=== PATIENT | female | born 1945 | race Caucasian/White ===

== ENCOUNTER 2021-04-10 18:13 | Inpatient (IN) | payer OTHER ==
[~2021-04-10] VITALS: Ht 152.4 cm; Wt 89.4 kg
--- NOTE | ~2021-04-10 | HC ---
[facility] [place] [address] CONSULTATION Name: TRISTAN DURBIN Room #: 460-P ADM IN M.R.#: [id number] Admission: 04/10/21 Attend Phys: Devendra Shipman MD Discharge: Date of : 47 Report #: [id number] THIS REPORT FOR: cc: Carleen Felix Shanna R. DO Smithson, David G. MD ~ DATE OF SERVICE: 04/13/2021 HISTORY OF PRESENT ILLNESS: The patient is a 75-year-old female with a history of Parkinson's disease, admitted with generalized weakness, inability to ambulate. Noted to complain of stiffness, worse involving left upper and left lower extremity. Mental status changes have also been noted with hallucinations. She has been seen by Neurology and an MRI of the brain is pending. PAST MEDICAL HISTORY: Includes Parkinson's and irritable bowel syndrome. She [facility] which [facility] regarding bilateral leg pain. PAST SURGICAL HISTORY: Includes cholecystectomy and hysterectomy. FAMILY HISTORY: Noncontributory. SOCIAL HISTORY: Lives alone in an apartment, used a 4-wheeled walker. Daughter lives in the same city and the daughter takes her shopping. The patient has had issues with increased time to stand needing up to 20 minutes per notes. ALLERGIES: No known drug allergies. MEDICATIONS: See the MAR. REVIEW OF SYSTEMS: No complaints of chest pain, shortness of breath or abdominal discomfort. PHYSICAL EXAMINATION: GENERAL: A 75-year-old female in no obvious distress. VITAL SIGNS: Temperature 36.6, pulse 89, respirations 17, blood pressure 137/67. NEUROLOGIC: The patient is alert, follows basic 1-step commands. Facies are symmetric. EOMs are full. Language function and judgment seemed reasonably intact, although she was noted to have some hallucinations earlier per Dr. Gatica in Neurology. Functional range of motion of both upper and lower extremities. Strength appeared symmetrical. Position sense was intact in both sides. Reflexes were somewhat diminished in both sides. She is able to sit to stand, standby assistance. Bed mobility was mod assist. Once up, gait was 25 feet min assist with a front-wheeled walker. She is needing min assist with [facility] [address] [place] [address] CONSULTATION Name: TRISTAN DURBIN Room #: 460-[facility]#: [id number] Admission: 04/10/21 Attend Phys: Devendra Shipman MD Discharge: Date of : 47 Report #: [id number] toileting. ASSESSMENT: A 75-year-old female with the following problem list: 1. Parkinson's disease. 2. Left upper and left lower extremity weakness/stiffness with mental status changes. MRI of the brain is currently pending to rule out a cerebrovascular accident. 3. Bilateral lower extremity weakness. 4. Irritable bowel syndrome. 5. Anxiety, depression. 6. Hallucinations, which appear related to her Parkinson's. PLAN: Therapy evaluations are continuing. She is to have an MRI of the brain. Insurance will need to be checked regarding rehab therapy issues as she further medically stabilizes. We will be glad to follow along with you regarding her rehab therapy needs. By: [id number] Ricky Amaral MD /nt
[~2021-04-10 18:13] MED LIST: COLACE100 MG PO; IBUPROFEN 800800 MG PO; NOHOMEMEDICATIONS; NORCO 5-325 TA1 EACH PO; PROBIOTIC1 EAC1 PO
[2021-04-10 18:14] VITALS: BP 104/60
[2021-04-10 18:44] LABS: URINE BLOOD TRACE (Negative); URINE CLARITY CLEAR; URINE COLOR YELLOW; URINE GLUCOSE-RANDOM* TRACE (Negative); URINE KETONES 1+ (Negative); URINE LEUKOCYTES-REFLEX NEGATIVE (Negative); URINE NITRITE-REFLEX NEGATIVE (Negative); URINE PROTEIN (DIPSTICK) 1+ (Negative); URINE SPECIFIC GRAVITY >= 1.030 (1.005-1.035)
[2021-04-10 18:53] LABS: ICTOTEST (BILI CONFIRMATORY) Negative (Negative); URINE BILIRUBIN NEGATIVE (Negative)
[2021-04-10 18:58] LABS: FINE GRANULAR CASTS 0-3 Few /LPF (None Seen); HYALINE CASTS 0-3 Few /LPF (None Seen); MUCUS 4-6 Moderate strn/LPF (None Seen); SQUAMOUS None Seen /LPF (0-3); URIC ACID CRYSTALS 4-10 Moderate /LPF (None Seen)
[2021-04-10 18:58] LABS: ABSOLUTE NEUTROPHILS 6.4 thou/uL (1.4-8.2); BASOPHILS 0.5 % (0.0-2.0); EOSINOPHILS 1.3 % (0.0-3.0); HEMATOCRIT 39.5 % (37.0-47.0); LYMPHOCYTES 17.8 % (24.0-44.0); MCH 30.5 pg (26.0-34.0); MCHC 32.9 g/dL (28.0-37.0); MCV 92.6 fL (80.0-100.0); MONOCYTES 8.5 % (1.0-8.0); PLATELET COUNT 204 thou/uL (150-400); POLYS 71.9 % (36.0-66.0); RBC 4.26 mil/uL (4.20-5.00); RDW 13.9 % (10.5-14.5); WBC 8.9 thou/uL (4.0-11.0)
[2021-04-10 18:59] LABS: BACTERIA-REFLEX None Seen /HPF (None Seen); URINE RBC 1-2 Rare /HPF (NONE SEEN); URINE WBC-REFLEX None Seen /HPF (0-5)
[2021-04-10 19:00] LABS: CALCIUM 8.6 mg/dL (8.5-10.1); CREATININE 0.8 mg/dL (0.6-1.0); POTASSIUM 3.8 mmol/L (3.5-5.1)
[2021-04-10 19:07] LABS: ALBUMIN 3.4 g/dL (3.4-5.0); DIRECT BILIRUBIN 0.1 mg/dL (<0.1-0.2); TOTAL BILIRUBIN 0.6 mg/dL (0.2-1.0); TOTAL PROTEIN 6.2 g/dL (6.4-8.2)
[2021-04-10] MEDS ORDERED: TIZANIDINE HCL4 M2 PO (23:43)
[2021-04-10] MEDS ORDERED: CARBIDOPA-LEVO1 EAC9 PO (23:44)
[2021-04-10] MEDS ORDERED: CARBIDOPA-LEVO1 EAC7 PO (23:44)
[2021-04-10] MEDS ORDERED: VENLAFAXINE HCL75 M2 PO (23:44)
[2021-04-10] MEDS ORDERED: VITAMIN D31250 MC1 PO (23:44)
--- NOTE | 2021-04-10 23:46 | NUR ---
ROUTINE CONSULT CALLED TO DR. SUTTON ANSWERING SERVICE
[2021-04-11 07:00] VITALS: BP 126/62
--- NOTE | 2021-04-11 07:44 | NUR ---
PT ARRIVED IN THE UNIT AT 0022, WITH CO OF LEFT LEG STIFFNESS, ADMISSION COMPLETED REQUESTED TO SLEEP, VITAL SIGNS COMPLETED, REPORTSNO PAIN OR DISCOMFORT WILL CONTINUE TO MONITOR.
--- NOTE | 2021-04-11 18:10 | NUR ---
ASSUMED PT CARE AROUND 719. A X O X 3-4, ON RA, NON IMPULSIVE. 2 PERSON ASST FOR SAFETY, LEFT LEG WEAK. IV LF AC/SL.NEURO CONSULTED AND TELECONSULTING COMPLETED. MRI HEAD ORDERED, BUT WILL HAPPEN ONLY ON TUESDAY. HOSPITALIST AND NEURO DR INFORMED. PATIENT DAUGHTER WAS IN THE ROOM AND SITUATIONS UPDATED. WILL CALL FOR HELP, CALL LIGHT IN REACH. PAIN PARTIALLY CONTROLLED BY PRN PAIN MEDS. HOURLY ROUNDING DONE. WILL CONTINUE TO MONITOR.
[2021-04-11 20:31] VITALS: BP 114/74
--- NOTE | 2021-04-12 06:23 | NUR ---
PT SLEPT 50% OF THE NIGHT, WALKED AROUNG THE HALLWAY ACCOMPANIED BY STAFF, COMPLIANT TO TX, NO ADVERSE REACTION NOTED, REPORTS NO PAIN OR DISCMOFORT WILL CONTINUE TO MONITOR.
[2021-04-12 07:00] VITALS: BP 135/56
[2021-04-12 17:09] VITALS: BP 138/70
[2021-04-12 19:40] VITALS: BP 137/67
--- NOTE | 2021-04-13 04:26 | NUR ---
ASSUMED PT CARE THIS PM. PT IS ALERT AND ORIENTED WITH CONFUSION. PT DID NOT C/O PAIN. PT IS SBA WITH A WALKER TO THE BR. PT IS NON-COMPLIANT WITH THE USE OF CALL LIGHT. MEDS WERE GIVEN PER EMAR ORDERS. PT IS ON RA. PT SLEPT WELL ON THIS SHIFT. NO VISIBLE SIGN OF DISTRESS WAS NOTED. FALL PRECAUTION IN PLACE. WILL CONTINUE TO MONITOR.
--- NOTE | 2021-04-13 15:54 | NUR ---
Chart review. DX: AMS Unable to visit with junito r/t getting IV placed. Will cont following as needed for dc needs.
[2021-04-13 20:14] VITALS: BP 134/68
--- NOTE | 2021-04-14 02:03 | NUR ---
ASSUMED PT CARE THIS PM. PT IS ALERT AND ORIENTED X4 WITH NO SIGN OF CONFUSION OR DISORIENTATION. PT IS APPROPRIATE AND COOPERATIVE. PT IS NOW ANXIOUS OF TAKING PAIN MEDS WHICH MIGHT LEAD CONFUSION AND DISORIENTATION. PT CAN VERBALIZE NEEDS AND USES THE CALL LIGHT APPROPRAITELY. PT C/O PAIN AND CRAMPS IN L LEG. PT IS SBA TO THE BR/BSC WITH WALKER. MEDS WERE GIVEN PER RADHA KUMAR. PT IS ON RA. FALL PRECAUTIONS IN PLACE. WILL CONTINUE TO MONITOR.
[2021-04-14 08:00] VITALS: BP 127/67
--- NOTE | 2021-04-14 14:55 | NUR ---
PT ADMITTED RELATED TO ALTERED MENTAL STATUS. CM REVIEWED CHART AND SPOKE WITH CARE TEAM. CM MET WITH PT AND DTR AT BEDSIDE THIS DAY. PT APPEARED TO BE A&O X4. CM ROLE INTRODUCED. PT AND DTR INDICATED THAT SHE RESIDES IN AN APARTMENT ALONE WITH ELEVATOR ACCESS. PT INDICATED SHE HAS A 4WW AND A CAME FOR HOME USE. PT INDICATED NO HH OR OP HX. PT INDICATED THAT SHE WAS RECEPTIVE TO POST ACUTE CARE STAY. CM INDICATED THAT 5N HAD BEEN CONSULTED AND INDICATED THAT PT WASN'T MEDICALLY COMPLEX ENOUGH AND WAS TOO HIGH LEVEL FOR ACUTE REAHB ON 5N. PT AND DTR WERE DISSAPOINTED BUT EXPRESSED UNDERSTANDING. CM PROVIDED [employer] SNF LIST FOR REVIEW. PT AND DTR ARE REVIEWING LIST AND WILL INDICATED TO CM WHERE THEY WANT REFERRAL SENT. CM FOLLOWING REGARDING DC PLANNING.
--- NOTE | 2021-04-14 19:21 | NUR ---
Alert, pleasant, confused at times. claimed that she felt better today. vital signs monitored, lab reviewed.
[2021-04-14 20:53] VITALS: BP 123/62
--- NOTE | 2021-04-15 06:07 | NUR ---
ASSUMED CARE OF PT AT 1900. THROUGHOUT THE NIGHT PT RESTED IN ROOM WITH NO COMPLAINTS, VSS.THROUGHOUT THE NIGHT PT REMAINED ORIENTED AND AMBULATED TO THE BATHROOM OR COMMODE WITH A WALKER. DID NOT HAVE ANY HALLUCINATIONS OR HAVE ANY NEED FOR ANTI ANXIETY MEDICATION. MEDS TAKEN WHOLE EASILY. RESTING IN BED, WILL UPDATE DAY SHIFT RN.
[2021-04-15 07:56] VITALS: BP 125/70
--- NOTE | 2021-04-15 12:31 | NUR ---
Pt and dtr discussing dc home with hh this am, but after talking with the attending they are interested in SNF stay at [facility]. Referral called and faxed to admissions. She will need ins auth per [employer]. Awaiting response from [facility] on acceptance and ins auth submission.
[2021-04-15 15:55] VITALS: BP 122/75
[2021-04-15 19:48] VITALS: BP 128/77
--- NOTE | 2021-04-16 04:37 | NUR ---
Pt. rested quietly at intervals during the night when checked on during frequent rounds. She has attempted to get up out of bed without asking for assistance. Bed alarm has sounded off. Up to the bedside comode with one assistance. Po tyleno given (see emar) for c/o a headache with some relief noted.
[2021-04-16 08:15] VITALS: BP 131/73
[2021-04-16] MEDS ORDERED: CARBIDOPA-LEVO1 EAC8 PO (11:12)
--- NOTE | 2021-04-16 13:32 | NUR ---
Assumed pt care this am vs stable. Daughter at the bedside this am. Diet and medicatioms ar tolerated well. POC followed with no signs or verbalizations of distress noted. Report called to [facility]. IV removed pt is now dc.
--- NOTE | 2021-04-16 16:35 | NUR ---
AUTH WAS RECEIVED FOR PT TO DC TO [facility] THIS DAY. CHART COPY MADE. ORDERS FAXED. [facility]AN TRANSPORT ARRANGED FOR [id number]. PT AND DTR AWARE AND AGREEABLE. NO OTHER CM INTERVENTION INDICATED. CASE CLOSED.
[2021-04-17] MEDS ORDERED: HALDOL 0.5 MG0.5 MG PO (08:18)
== END 2021-04-16 13:51 | DRG 556 ==
LOC: ER 18:13 → EROBS 21:14 → 4W 21:14
PROVIDERS: Emergency Medicine; ADMIT Hospitalist; ATTEND Hospitalist
DX: M62.81 Muscle weakness (generalized) (principal); R44.3 Hallucinations, unspecified; E46 Unspecified protein-calorie malnutrition; K58.9 Irritable bowel syndrome, unspecified; M79.605 Pain in left leg; M79.604 Pain in right leg; G20 Parkinson's disease; E55.9 Vitamin D deficiency, unspecified; Z20.822 Contact with and (suspected) exposure to COVID-19; Z60.2 Problems related to living alone; F41.9 Anxiety disorder, unspecified; F32.9 Major depressive disorder, single episode, unspecified; M62.838 Other muscle spasm; R53.81 Other malaise; R39.11 Hesitancy of micturition; Z68.38 Body mass index [BMI] 38.0-38.9, adult; Z90.710 Acquired absence of both cervix and uterus; Z90.49 Acquired absence of other specified parts of digestive tract
CPT/HCPCS: 10047

== ENCOUNTER 2021-04-17 06:19 | Inpatient (IN) | payer OTHER ==
[~2021-04-17] VITALS: Ht 152.4 cm; Wt 95.3 kg
[2021-04-17] VITALS (63 sets, daily range): BP systolic 56–132; BP diastolic 16–80
--- NOTE | ~2021-04-17 | EMS ---
[address] [address] EMS Patient Care Report Name: TRISTAN DURBIN Room #: 203-P [facility] IN M.R.#: [id number] Admission: 04/17/21 Attend Phys: Maday Muro MD Discharge: Date of : 47 Report #: [id number] THIS REPORT FOR: //name// Report Transmitted: 04/20/2021 10:48 EMS Care Summary [place], [place]/[facility] Incident [id number] @ 04/17/2021 05:47 Incident Location [address] Patient TRISTAN DURBIN Female, 75 Years 1945 Patient Address [address] [facility] [address] [place] [address] Patient History Parkinson's Disease, Patient Allergies No known allergies, Patient Medications Other, Chief Complaint AMS Disposition Transported No Lights/[place] Dispatch Reason Cardiac Arrest/ Transported To [facility] Narrative EMS DISPATCHED TO NURSING FACILITY ON A REPORT OF A CARDIAC ARREST. UPON ARRIVAL ON SCENE EMS FIND PT LYING ON FLOOR OF NURSING FACILITY. PT NURSING STAFF REPORTED PT WAS BEING ASSISTED TO [facility] WHEN PT HAD A SYNCOPAL EPISODE. [address] [address] EMS Patient Care Report Name: TRISTAN DURBIN Room #: 203-P ADM IN M.R.#: [id number] Admission: 04/17/21 Attend Phys: Maday Muro MD Discharge: Date of : 49 Report #: [id number] STAFF REPORTED AFTER THE SYNCOPAL EPISODE, PT BELIEVED TO HAVE WENT PULSELESS, STAFF ON SCENE REPORTED THEY PROVIDED CHEST COMPRESSIONS FOR APPROXIMATELY 5 MINUTES UNTIL PT REGAINED PULSE. PT HAD STRONG BOUNDING PULSE UPON EMS INTIAL ASSESSMENT. PT IN ALTERED MENTAL STATE, PT KNOWN HX OF PARKINSON'S DISEASE BUT COULD USUALLY VERBALLY COMMUNICATE PER NURSING STAFF ON SCENE. PT VITAL SIGNS OBTAINED, AND PT PLACED ON SUPPLEMENTAL OXYGEN. PT MOVED INTO AMBULANCE WHERE PT VITAL SIGNS OBTAINED. PT PLACED ON CARIDAC MONITOR AND 12-LEAD ECG OBTAINED. IV ACCESS ESTABLISHED AND PT CONDITION CONTINUALLY MONITORED EN ROUTE TO [facility]. NO NOTICEABLE CHANGES IN PT CONDITON DURING TRANSPORT TO RECEIVING FACILITY. UPON ARRIVAL TO [facility] PT MOVED INTO FACILITY ON EMS STRETCHER WHERE PT WAS THEN TRANSFERRED ONTO ER HOSPITAL BED WITHOUT INCIDENT. PT REPORT GIVEN TO RECEIVING NURSING STAFF AND TRANSFER OF PT CARE COMPLETED. Initial Vitals @06:15P: 112,R: 18,BP: 132/86,Pain: 0/10,GCS: 8,Glucose: 96,SpO2: 96,Revised Trauma: 10, @06:27P: 96,R: 16,BP: 124/66,Pain: 0/10,GCS: 9,SpO2: 97,Revised Trauma: 11, Assessments @06:00MENTAL:Event Oriented,Place Oriented,Time Oriented,Person Oriented,SKIN:HEENT:Eyes: Right: Non-Reactive,Eyes: Left: Non-Reactive,LUNG SOUNDS:ABDOMEN:PELVIS//GI:EXTREMITIES:PULSE:NEURO:Other, Impression Altered Mental Status Procedures @06:00 ALS Assessment Response: UnchangedSucceeded @PTASucceeded @06:03 3-Lead ECG Response: UnchangedSucceeded @06:02 Oxygen FlowRate: 10 Device: Non Re-breather Mask (NRB) Response: UnchangedSucceeded @06:11 IV Therapy - Saline Lock 3cc (20 ga) Site: Antecubital-Left Response: UnchangedFailed Timeline MATERIALS ASSOCIATE,Succeeded, 05:46,Call Received 05:46,Dispatch Notified 05:47,Dispatched 05:48,En Route 05:54,On Scene 05:58,At Patient 06:00,ALS Assessment,Response: UnchangedSucceeded, [address] [address] EMS Patient Care Report Name: TRISTAN DURBIN Room #: 203-P [facility] IN [facility]#: [id number] Admission: 04/17/21 Attend Phys: Maday Muro MD Discharge: Date of : 49 Report #: [id number] 06:02,Oxygen FlowRate: 10 Device: Non Re-breather Mask (NRB) Response: UnchangedSucceeded, 06:03,3-Lead ECG,Response: UnchangedSucceeded, 06:11,IV Therapy - Saline Lock 3cc 20 ga Site: Antecubital-Left,Response: UnchangedFailed, 06:14,Depart Scene 06:15,BP: 132/86 M,PULSE: 112,RR: 18 R,SPO2: 96 Ox,ETCO2: ,B,PAIN: 0,GCS: 8, 06:26,At Destination 06:27,BP: 124/66 M,PULSE: 96,RR: 16 R,SPO2: 97 Ox,ETCO2: ,BG: ,PAIN: 0,GCS: 9, 06:31,Call Closed Disclaimer v1.1 Copyright 2020 [employer] This EMS Care Summary contains data elements from the applicable legal record (which may be displayed differently). It is designed to provide pertinent information for the following purposes: continuity of care, clinical quality, and state data reporting. The complete legal record is available to ED staff and administrators of the receiving hospital in [email or web address][email or web address] Patient Tracker. All data is provided "as is."
[~2021-04-17 06:19] MED LIST changes: +CARBIDOPA-LEVO1 EAC7 PO; +CARBIDOPA-LEVO1 EAC8 PO; +CARBIDOPA-LEVO1 EAC9 PO; +TIZANIDINE HCL4 M2 PO; +VENLAFAXINE HCL75 M2 PO; +VITAMIN D31250 MC1 PO
[2021-04-17 07:08] LABS: ABSOLUTE NEUTROPHILS 12.6 thou/uL (1.4-8.2); BASOPHILS 0.3 % (0.0-2.0); EOSINOPHILS 0.6 % (0.0-3.0); HEMATOCRIT 47.1 % (37.0-47.0); HEMOGLOBIN 15.5 gm/dL (12.0-15.0); LYMPHOCYTES 12.1 % (24.0-44.0); MCH 30.6 pg (26.0-34.0); MCHC 32.9 g/dL (28.0-37.0); MONOCYTES 4.8 % (1.0-8.0); PLATELET COUNT 176 thou/uL (150-400); POLYS 82.2 % (36.0-66.0); RBC 5.07 mil/uL (4.20-5.00); RDW 13.9 % (10.5-14.5); WBC 15.3 thou/uL (4.0-11.0)
[2021-04-17 07:17] LABS: CALCIUM 9.7 mg/dL (8.5-10.1); CREATININE 1.2 mg/dL (0.6-1.0); POTASSIUM 3.4 mmol/L (3.5-5.1)
--- NOTE | 2021-04-17 07:22 | EKG ---
[place] [address] [facility] [place] [address] ELECTROCARDIOGRAM REPORT Name: TRISTAN DURBIN [facility] [id number] Admission: 04/17/21 Attend Phys: Discharge: Date of : 49 Report #: [id number] [facility] ED Test Date: 2021-04-17 Test Time: 07:15:54 Pat Name: TRISTAN DURBIN Department: Room: Gender: F Flat Drier: joyce : 1945 Requested By: Ricky Morris Order Number: [id number] MD: Capo Dimas Measurements Intervals [place] Rate: 105 P: 0 WA: 81 QRS: 60 QRSD: 159 T: -48 QT: 361 QTc: 478 Interpretive Statements Sinus tachycardia Ventricular premature complex Right bundle branch block Compared to ECG 09/17/2005 14:39:28 Ventricular premature complex(es) now present Right bundle-branch block now present Sinus rhythm no longer present First degree AV block no longer present T-wave abnormality no longer present Electronically Signed On 04-17-2021 7:22:43 CDT by Capo Dimas [email or web address] <ELECTRONICALLY SIGNED> By: Capo Dimas MD, FAC 04/17/21721 4 4 Capo Dimas MD, [facility] /EPI
[2021-04-17 07:27] LABS: ALBUMIN 4.2 g/dL (3.4-5.0); TOTAL PROTEIN 7.9 g/dL (6.4-8.2)
[2021-04-17] MEDS ORDERED: HALDOL 0.5 MG0.5 MG PO (08:18)
[2021-04-17 08:37] LABS: URINE BLOOD 3+ (Negative); URINE COLOR YELLOW; URINE GLUCOSE-RANDOM* NEGATIVE (Negative); URINE KETONES TRACE (Negative); URINE LEUKOCYTES-REFLEX NEGATIVE (Negative); URINE NITRITE-REFLEX NEGATIVE (Negative); URINE PROTEIN (DIPSTICK) 2+ (Negative); URINE SPECIFIC GRAVITY >= 1.030 (1.005-1.035)
[2021-04-17 08:51] LABS: ICTOTEST (BILI CONFIRMATORY) Negative (Negative); URINE BILIRUBIN NEGATIVE (Negative); URINE CLARITY HAZY
[2021-04-17 08:52] LABS: SQUAMOUS 0-3 Few /LPF (0-3)
[2021-04-17 08:53] LABS: BACTERIA-REFLEX 1-9 Few /HPF (None Seen); CRYSTALS None Seen /LPF (None Seen); HYALINE CASTS 0-3 Few /LPF (None Seen); MUCUS >6 Heavy strn/LPF (None Seen); URINE RBC >20 Many /HPF (NONE SEEN); URINE WBC-REFLEX 0-5 Rare /HPF (0-5)
[2021-04-17 09:04] LABS: HEMATOCRIT 42.3 % (37.0-47.0); HEMOGLOBIN 13.7 gm/dL (12.0-15.0); MCH 30.3 pg (26.0-34.0); MCHC 32.4 g/dL (28.0-37.0); MCV 93.5 fL (80.0-100.0); RBC 4.52 mil/uL (4.20-5.00)
[2021-04-17 09:18] LABS: APTT 26.9 Seconds (24.5-32.8); INR 1.12; PROTIME 12.1 Seconds (10.5-12.1)
[2021-04-17 10:07] LABS: CHOLESTEROL 225 mg/dL (<200); HDL CHOLESTEROL 62 mg/dL (>40); LDL CHOLESTEROL 134 mg/dL (<100); TC:HDL 3.6 Ratio (Not establshd); TRIGLYCERIDE 147 mg/dL (<150); VLDL 29 mg/dL (<40)
--- NOTE | 2021-04-17 10:23 | 2DMMODE ---
[facility] [place] [address] 2 D/M-MODE ECHOCARDIOGRAM Name: TRISTAN DURBIN Room #: 170-6 ADM IN M.R.#: [id number] Admission: 04/17/21 Attend Phys: Maday Muro MD Discharge: Date of : 47 Report #: [id number] THIS REPORT FOR: cc: Carleen Felix Shanna R. DO Santiago, Patrick MD [facility] ~ APPROVED REPORT Study performed: 04/17/2021 08:59:49 EXAM: Comprehensive 2D, Doppler, and color-flow Echocardiogram Patient Location: ER Status: routine BSA: 1.85 HR: 108 bpm BP: 126/46 mmHg Rhythm: RBBB Other Information Study Quality: Adequate/patient in pain. Not all measurements taken. Indications Syncope, tachycardia, RBBB 2D Dimensions IVSd: 10.68 (7-11mm) LVDd: 38.57 mm PWd: 9.98 (7-11mm) Ascending Ao: 34.68 (22-36mm) LVDs: 26.50 (25-40mm) Aortic Root: 33.86 mm Aortic Valve AoV Peak Scott.: 1.12 m/s AO Peak Gr.: 5.02 mmHg Tricuspid Valve TR Peak Scott.: 2.56 m/s TR Peak Gr.: 26.31 mmHg Left Ventricle The left ventricle is normal size. Paradoxical septal motion consistent with bundle branch block. There is normal left ventricular [facility] [address] [place] [address] 2 D/M-MODE ECHOCARDIOGRAM Name: TRISTAN DURBIN Room #: 170-6 ADM IN M.R.#: [id number] Admission: 04/17/21 Attend Phys: Sonia Berry Discharge: Date of : 49 Report #: [id number] wall thickness. Left ventricular systolic function is normal. LVEF is 60%. This study is not technically sufficient to allow evaluation of the LV diastolic function due to tachycardia. Right Ventricle The right ventricle is normal size. The right ventricular systolic function is normal. Atria The left atrium size is normal. The right atrium size is normal. Aortic Valve The aortic valve is grossly normal. No aortic regurgitation is present. There is no aortic valvular stenosis. Mitral Valve The mitral valve is normal in structure. There is no mitral valve regurgitation noted. No evidence of mitral valve stenosis. Tricuspid Valve The tricuspid valve is normal in structure. Trace tricuspid regurgitation. Estimated PAP is 26mmHg plus the right atrial pressure. Pulmonic Valve Pulmonic valve is not well visualized. Great Vessels The aortic root is normal in size. IVC is not well visualized. Pericardium There is no pericardial effusion. <Conclusion> Normal left ventricle size/wall thickness Ejection fraction 60%, no obvious segmental wall motion abnormality Normal right ventricular size/function Normal atrial size Normal aortic/mitral valve structure and function Trace tricuspid valve insufficiency Pulmonary systolic pressure estimated 26 mmHg [facility] [address] [place] [address] 2 D/M-MODE ECHOCARDIOGRAM Name: TRISTAN DURBIN Room #: 170-6 ADM IN .R.#: [id number] Admission: 04/17/21 Attend Phys: Sonia Berry Discharge: Date of : 49 Report #: [id number] No pericardial effusion Normal aortic root size <ELECTRONICALLY SIGNED> By: Capo Dimas MD, FACC 04/17/21 102 22 102 Capo Dimas MD, FACC /INF
--- NOTE | 2021-04-17 15:07 | NUR ---
Patient dc from [facility] to [facility] 04/16/21. She readmitted 04/17/21. Patient at [facility] and had a syncople episode. She rec CPR. Patient alert and reports She does NOT want to return to [facility]. Sp with dtr who reports she is aware she does not want to return. She has obtained her belongings from facility. Dtr reports prior to prev hospital stay she was independent with adls living independently. Dtr reports while at [facility] she called police 3x. She reports she called dtr constantly to get her from [facility]. She reports patiet has been off her depression medication as she had a side effect from medication. Dtr reports she is hallucinating constantly now at this time. She reports lighter captain she would hallucinate slightly but is has increased as of late. Dtr speaking with RN regarding hallucinations. Patient likely need post acute care. Will discuss [employer] skilled list. casemgt following.
--- NOTE | 2021-04-17 18:28 | NUR ---
PT IS HAVING HYPOTENSION WITH A MAP 50-58 AND LOW UO. HOSPITALIST IS NOTIFIED. ORDERS FOR 1L NS BOLUS ARE RECEIVED. PT RESPONDED TO A FLUID RESUSITATION WITH 500ML NS BOLUS EARLIER HER MAP RAISED FROM 55 T0 70. SHE IS NOT TACHYCARDIC, HER NEUROLOGICAL STATUS IS NOT ALTERED. PT IS FOLLOWING COMMANDS, A/OX3, HER SKIN IS WARM AND DRY. SHE IS SATTING 93% ON RA; HER BREATHING IS NOT LABORIOUS. HER RR IS 22, EVEN, AND UNLABORED. PT IS ON A HEPARIN DRIP FOR A HIGH TROPONIN VALUE.
[2021-04-18] VITALS (47 sets, daily range): BP systolic 78–141; BP diastolic 34–75
[2021-04-18 03:53] LABS: ABSOLUTE NEUTROPHILS 3.6 thou/uL (1.4-8.2); BASOPHILS 0.5 % (0.0-2.0); HEMATOCRIT 33.4 % (37.0-47.0); LYMPHOCYTES 27.8 % (24.0-44.0); MCH 31.2 pg (26.0-34.0); MCHC 33.3 g/dL (28.0-37.0); MCV 93.6 fL (80.0-100.0); MONOCYTES 12.2 % (1.0-8.0); PLATELET COUNT 107 thou/uL (150-400); POLYS 56.5 % (36.0-66.0); RBC 3.56 mil/uL (4.20-5.00); RDW 14.1 % (10.5-14.5); WBC 6.3 thou/uL (4.0-11.0)
[2021-04-18 03:57] LABS: HEMOGLOBIN 11.1 gm/dL (12.0-15.0)
[2021-04-18 04:14] LABS: CREATININE 0.8 mg/dL (0.6-1.0); MAGNESIUM 1.7 mg/dL (1.8-2.4); POTASSIUM 3.2 mmol/L (3.5-5.1)
[2021-04-18 04:17] LABS: CALCIUM 7.6 mg/dL (8.5-10.1)
--- NOTE | 2021-04-18 06:51 | NUR ---
Pt progressing towards goal. Pt was afebrile, a&o x4, complained of pain back pain, meds given with partial relief and was able to go back to sleep. Bp improved during the shift with the latest being 106/42 (77) with maintanance IV fluid infusing. Urine output remained low with a total of 220 ml for the shift. Report to be given to day shift.
[2021-04-19] VITALS (28 sets, daily range): BP systolic 75–163; BP diastolic 43–91
--- NOTE | 2021-04-19 07:58 | NUR ---
Pt progressing towards goal. Pt was afebile, a&o x4, calm & pleasant, complained of back pain, reposition & meds given with partial relief. VSS within normal limits with sats above 95% on room air . Pt has two small soft bowel movements with a total urine out put of 1500 ml for the shift. Report given to day shift.
[2021-04-19 11:03] LABS: CALCIUM 7.9 mg/dL (8.5-10.1); CREATININE 0.5 mg/dL (0.6-1.0); POTASSIUM 4.3 mmol/L (3.5-5.1)
[2021-04-19 11:04] LABS: MAGNESIUM 1.7 mg/dL (1.8-2.4)
--- NOTE | 2021-04-19 15:32 | NUR ---
PT HAS BEEN CALM AND COOPERATIVE TODAY. PT HAS HAD 2 VISUAL HALLUCINATIONS TODAY. PT KNOWS BRIEFLY AFTER HAVING THE HALLUCINATION THAT SHE HAS HAD ONE. PT STATED FOR ONE OF THE HALLUCINATIONS THAT THE WINDOW WAS OPEN AND IT WAS RAINING. THE OTHER HALLUCINATION, PT BELIEVED THERE WAS 4 PEOPE IN THE ROOM WHEN IT WAS JUST RN AND PT. PT IS REFUSING TO BE TURNED THIS AFTERNOON DUE TO HAVING CHEST PAIN/SORENESS. PT HAD ONE SMALL BOWEL MOVEMENT THIS SHIFT. PATIENT HAS MEDSURG/TELE TRANSFER ORDERS. WILL CONTINUE TO MONITOR. PT IS PROGRESSING TOWARDS PLAN OF CARE
--- NOTE | 2021-04-19 22:24 | NUR ---
ASSUMED CARE OF PATIENT AT 1900. WENT IN WITH DAY NURSE TO INTRODUCE MYSELF. PATIENT PLEASANT, DENIED PAIN, NO CONCERNS. THIS RN WENT BACK IN AT 1930 TO ASSESS PATIENT, SHE HAD PULLED OUT HER IV, HER TELE STICKERS AND WAS ATTEMPTING TO GET OUT OF BED. WHEN ASKED WHAT SHE DOING SHE BECAME IRRATIONAL, HOSTILE AND SAID SHE WAS LEAVING. ANOTHER RN CAME TO ASSIST AND WE WERE UNABLE TO REORIENT HER. SHE WAS HALLUCINATING AND SAYING THERE WERE POLICE BEHIND HER AND THEY HAD A GUN. RESTRAINTS WERE APPLIED AND A ONE TIME DOSE OF HALDOL GIVEN AFTER SPEAKING WITH THE ETHICS OFFICER Rita LANDEROS. DAUGHTER CALLED AND UPDATED, SHE IS EXTREMELY CONCERNED ABOUT MOTHER, SAYS HALLUCINATIONS ARE GETTING WORSE AND THAT IT IS BEING CAUSED BY HER PARKINSON MEDICATION. AT THIS TIME PATIENT IS STILL VERBALLY HOSTILE, UNCOOPERATIVE IN CARES AND CANNOT STATE WHERE SHE IS. NOT PROGRESSING TOWARDS POC GOALS.
[2021-04-20 07:32] VITALS: BP 133/67
--- NOTE | 2021-04-20 08:23 | NUR ---
OT HAS BEEN UNABLE TO EVALUATE PT ON 04/17 (PT REFUSED), 04/18, AND ON THIS DAY PT COULD NOT BE AROUSED. PT AGITATED AND CONFUSED THIS MORNING, IN RESTRAINTS, UNABLE TO AROUSE AND OPEN EYES. OT TO ATTEMPT EVAL TOMORROW
[2021-04-20 09:48] VITALS: BP 147/71
--- NOTE | 2021-04-20 11:45 | NUR ---
Patient transferred to [facility] room 203. Report was called to RN on . Family was present at transfer. She transferred with her belongings. She tolerated transfer.
--- NOTE | 2021-04-20 12:15 | NUR ---
Discussed during los, and unit rounds. She was transferred out of icu to ccu. Cm checked to see if her daughter was still here and she had already left. cm unable to visit with junito r/t resting eyes closed, bedside nurse in room with her. Will cont following as needed.
--- NOTE | 2021-04-20 15:49 | NUR ---
RECEIVED ORDER FOR CONSULT AND NOTIFIED DR. CARNEY. PT HAS [employer], AND WE WILL NEED TO REQUEST AUTHORIZATION IF DR. CARNEY DEEMS APPROPRIATE FOR REHAB. WILL CONTACT CM SOON PT IS SEEN.
[2021-04-20 16:00] VITALS: BP 155/97
[2021-04-20 16:10] LABS: URINE BILIRUBIN NEGATIVE (Negative); URINE BLOOD 3+ (Negative); URINE COLOR YELLOW; URINE GLUCOSE-RANDOM* NEGATIVE (Negative); URINE KETONES 1+ (Negative); URINE NITRITE-REFLEX NEGATIVE (Negative); URINE PROTEIN (DIPSTICK) NEGATIVE (Negative); URINE SPECIFIC GRAVITY 1.015 (1.005-1.035); URINE UROBILINOGEN 0.2 E.U./dl (0.2-1.0)
[2021-04-20 16:20] LABS: URINE LEUKOCYTES-REFLEX 3+ (Negative)
[2021-04-20 16:21] LABS: URINE CLARITY CLOUDY
[2021-04-20 16:23] LABS: BACTERIA-REFLEX >30 Many /HPF (None Seen); CASTS None Seen /LPF (None Seen); CRYSTALS None Seen /LPF (None Seen); SQUAMOUS 4-10 Moderate /LPF (0-3); URINE WBC-REFLEX 0-5 Rare /HPF (0-5)
--- NOTE | 2021-04-20 18:13 | NUR ---
PATIENT TRANSFERRED FROM ICU TO CCU. PATIENT IS A/O TO SELF. AGITATED AT TIMES WITH CARES. PATIENT PULLED OUT IV FROM RIGHT ARM AND PUREWICK OFF. AWAITING IV TEAM TO REPLACE IV. VSS AFEBRILE. C/O PAIN ON LEFT SIDE, TYLENOL AND LIDODERM PATCH EFFECTIVE. NEW ORDER FOR PT/OT, DR LR CONSULTED. FALL PRECAUTIONS IN PLACE.
--- NOTE | 2021-04-20 19:12 | NUR ---
VAT INSERTED 20GX1.75IN PIV TO LEFT ANTERIOR FOREARM, USING US GUIDANCE, X1 ATTEMPT, AT 1905.
[2021-04-20 19:33] VITALS: BP 131/69
[2021-04-21] VITALS (10 sets, daily range): BP systolic 82–126; BP diastolic 39–72
--- NOTE | 2021-04-21 00:37 | NUR ---
ASSUMED PT CARE AT 1900.PT WAS OBSERVED LYING DOWN ON HER BED ASLEEP. PT WAS ABLE TO WAKE UP FOR HS MEDS,WENT BACK TO SLEEP AFTERWARDS.PT HAS BEEN CALM NO BEHAVIORS NOTED SINCE SHIFT CHANGE.PT'S DTR CALLED AFTER SHIFT CHANGE,WAS UPDATED ON HER MOM'S CONITION AFTER VERIFYING PT'S CODE.NO BM SO FAR.IVF AND IV ABX GIVEN ORDERED.CALL LIGHT WITHIN REACH.
[2021-04-21 10:07] LABS: HEMATOCRIT 35.1 % (37.0-47.0); HEMOGLOBIN 11.4 gm/dL (12.0-15.0); MCH 30.9 pg (26.0-34.0); MCHC 32.5 g/dL (28.0-37.0); MCV 95.1 fL (80.0-100.0); RBC 3.69 mil/uL (4.20-5.00); RDW 14.1 % (10.5-14.5)
[2021-04-21 10:30] LABS: CALCIUM 8.3 mg/dL (8.5-10.1); CREATININE 0.9 mg/dL (0.6-1.0); POTASSIUM 4.1 mmol/L (3.5-5.1)
--- NOTE | 2021-04-21 10:38 | NUR ---
THIS CHAPAIN WAS PRESENT FOR "RAPID RESPONSE". I VISITED AND DID LIFE REVIEW WITH THE PATIENT'S DAUGHTER, CHEL. CHEL SAID HER CELLPHONE NUMBER IS . THE HOSPITAL APPARENTLY CURRENTLY ONLY HAS HER HOME TELEPHONE NUMBER. PATIENT WAS STABILIZED AND DOING WELL AFTER INTERVENTION.
--- NOTE | 2021-04-21 11:07 | NUR ---
Pt with syncopal episode-TRUCK STRIKER activated-see flowsheet
--- NOTE | 2021-04-21 11:52 | EKG ---
[address] [address] ELECTROCARDIOGRAM REPORT Name: TRISTAN DURBIN Room #: 203[facility] IN M.R.#: [id number] Admission: 04/17/21 Attend Phys: Maday Muro MD Discharge: Date of : 49 Report #: [id number] [facility] Test Date: 2021-04-21 Test Time: 09:41:54 Pat Name: TRISTAN DURBIN Department: Room: 203 Gender: F Readers' Advisory Service Librarian: [place] : 1945 Requested By: Maday Muro Order Number: [id number] MD: Capo Dimas Measurements Intervals [place] Rate: 81 P: -18 HI: 197 QRS: -4 QRSD: 95 T: 34 QT: 401 QTc: 466 Interpretive Statements Sinus rhythm Borderline T wave abnormalities Compared to ECG 04/17/2021 07:15:54 T-wave abnormality now present Sinus tachycardia no longer present Ventricular premature complex(es) no longer present Right bundle-branch block no longer present Electronically Signed On 04-21-2021 11:52:40 CDT by Capo Dimas [email or web address] <ELECTRONICALLY SIGNED> By: Capo Dimas MD, FACC 04/21/21 1152 [id number] [id number] Capo Dimas MD, [facility] /EPI
--- NOTE | 2021-04-21 17:06 | NUR ---
patient with rapid resonse today. left skilled [employer] list in room. patient wants acute rehab. Sp with dtr who reports patient needs to be accepted to acute rehab. She needed CPR at [facility] and with incident this am she needs inpatient rehab.
--- NOTE | 2021-04-21 17:52 | NUR ---
PT HAD A SYNCOPE EPISODE THIS MORNING AFTER BEING UP IN THE CHAIR WITH OT. SBP WAS IN 70'S. FLUID BOLUS GIVEN PER DR. ECHOLS ORDER. PT BP CURRENTILY IN THE 110'S. METOPROLOL ON HOLD PER DR. HUYNH ORDERS. ON ROOM AIR. ALERT AND ORIENTED X4, FORGETFUL AT TIMES. PER PT DAUGHTER PT HALLUCINATES AT TIMES, DR. LR ON THE CASE. THE [facility] MADE AWARE ABOUT PT SYNCOPE AND GAVE ORDERS FOR MRI TO BE COMPLETED TOMORROW. FALL PRECAUTIONS IN PLACE. DENIES ANY NEEDS AT MOMENT. WILL CONTINUIE TO MONITOR.
--- NOTE | 2021-04-21 22:37 | NUR ---
PT MORE ALERT TODAY THAN YESTERDAY.BP STABILIZED.PT C/O PAIN ON HER HEAD,MANAGED WITH MED.PT REPOSITIONED WITH PILLOWS WHILE IN BED.NO HALLUCINATIONS NOTED SO FAR.PT ALERT AND FORGETFUL.BRUISING NOTED TO HER L BREAST.PT WORRIED THAT BRUISING WILL NOT GO AWAY.PO FLUIDS ENCOURAGED.PT RESTING ON HER BED AT THIS TIME.CALL LIGHT WITHIN REACH.
[2021-04-22 03:52] VITALS: BP 119/62
[2021-04-22 08:11] VITALS: BP 127/65
[2021-04-22 15:42] VITALS: BP 123/66
--- NOTE | 2021-04-22 16:17 | NUR ---
patient reevaled by acute rehab. They accept clinically. They will submot for auth tomorrow post therapy sessions. Updated patient and dtr.
--- NOTE | 2021-04-22 16:46 | NUR ---
ASSESSMENT CHARTED - MED PER ALYSA - CHERYL DIET AND FLUIDS - NO CO'S OF NAUSEA. GIVEN TYLENOL FOR CO'S OF BACK PAIN WITH MOD RELIEF. PT SEEN BY PHYS AND OCC THERAPY THIS SHIFT. INCONTINENT OF STOOL WHILE UP IN THE CHAIR. FAMILY INOT VISIT WITH PATIENT. NO CO'S AT THE PRESENT TIME.
[2021-04-22 19:44] VITALS: BP 138/64
[2021-04-23 04:10] VITALS: BP 139/81
--- NOTE | 2021-04-23 04:12 | NUR ---
rt reposioned in bed q2h and as needed, external catheter draining l yellow urine, c/o left sided back and hip pain prn meds given at hs and pt was observed sleeping and able to return to sleep after assessments and repositioning except when she woke up at 3 she was having difficulty falling back to sleep, vss, calls out appropriatly for assistance, will con't to monitor per ppoc.
[2021-04-23 07:14] VITALS: BP 129/66
[2021-04-23 16:03] VITALS: BP 124/74
--- NOTE | 2021-04-23 17:36 | NUR ---
ASSESSMENT CHARTED - MEDS PER ALYSA - CHERYL DIET AND FLUIDS NO CO'S OF NAUSEA. GIVEN TYLENOL X 2 FOR CO'S OF PAIN IN L SHOULDER WITH MOD RELIEF. 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 PT TO BE NPO AFTER MN. PT HAD EPISODE OF SAYING THAT SHE WAS WAS IN APARTMENT BUT THEN WHEN ASKED SHE KNEW SHE WAS IN THE HOSPTIAL AND DAY ETC. NO CO'S AT THE PRESENT TIME
[2021-04-23 19:10] VITALS: BP 129/65
[2021-04-23 19:25] VITALS: BP 134/74
[2021-04-24 05:27] VITALS: BP 135/96
[2021-04-24 08:00] VITALS: BP 133/55
--- NOTE | 2021-04-24 14:06 | NUR ---
Nutrition: pt admitted S/P NSTEMI, syncopal episode. Seen for LOS. PMH: Parkinsons, IBS. Tolerating 50-75% of meals on regular diet at this time. Pt reports pushes self to eat as doesn't feel hungry. Stable weights. Understands meal ordering process if desired. Consider Heart healthy restriction if pt eating > 75% meals. Rehab evaluating pt for possible transfer. Low nutrition risk.
[2021-04-24 15:00] VITALS: BP 139/80
--- NOTE | 2021-04-24 15:30 | NUR ---
5N submitting for ins auth after therapy today and will likely have a bed for her on Tuesday if approved. Will follow.
--- NOTE | 2021-04-24 15:38 | NUR ---
CALLED [facility] TO START INSURANCE AUTHORIZATION PROCESS FOR ACUTE REHAB. PENDING REFERENCE #[id number]. RN FROM [facility] WILL CONTACT FINISH PRODUCTION MANAGER FOR CLINICAL INFORMATION.
--- NOTE | 2021-04-24 17:45 | NUR ---
RECEIVED CALL FROM BUSHRA AT [facility] WHO REQUESTED CLINICAL INFORMATION FOR ACUTE REHAB AUTHORIZATION DETERMINATION. INFORMATION REQUESTED WAS FAXED TO BUSHRA AT [phone]. AWAITING DETERMINATION FROM [facility].
[2021-04-24 20:13] VITALS: BP 114/76
[2021-04-25 03:55] VITALS: BP 105/58
--- NOTE | 2021-04-25 04:46 | NUR ---
RECEIVED PATIENT AT 1900H.ON NASAL CANNULA AT 3LPM, SATURATING WELL.NOT IN DISTRESS.HAD COMPLAINTS OF BACK PAIN, PRN PAIN MEDICATION GIVEN.ALL NEEDS ATTENDED.TO CONTINOUSLY MONITOR.
[2021-04-25 07:32] VITALS: BP 143/67
[2021-04-25 15:02] VITALS: BP 127/60
[2021-04-25 19:41] VITALS: BP 102/58
[2021-04-26 03:48] VITALS: BP 127/67
--- NOTE | 2021-04-26 04:33 | NUR ---
RECEIVED THE PATIENT AT 1900H.ON NASAL CANNULA AT 3LPM, SATURATING WELL.HAD COMPLAINTS OF BACK PAIN, PRN PAIN MEDICATION GIVEN.HAD BEEN ANXIOUS DURING THE NIGHT,BUT PATIENT REFUSED TO TAKE LORAZEPAM.ALL NEEDS ATTENDED,TO CONTINOUSLY MONITOR.
[2021-04-26 07:28] VITALS: BP 145/67
[2021-04-26 17:59] VITALS: BP 101/45
[2021-04-26 19:23] VITALS: BP 100/49
--- NOTE | 2021-04-26 23:01 | NUR ---
PT HAD DNR CODE STATUS IN CHART. RN PLACED DNR WRISTBAND ON PT. PT STATED SHE WANTED TO BE A FULL CODE. PT CALLED HER FAMILY AND DTR (WENDI). THIS RN SPOKE WITH DTR (WENDI ARIAS), WHO STATED HER MOTHER DOES NOT WANT TO BE A DNR AND THAT SHE (WENDI) NEVER DISCUSSED WITH A PROVIDER CHANGING PT CODE STATUS TO DNR. WENDI WOULD LIKE CODE STATUS TO BE CHANGED TO FULL CODE. NOTIFIED JENS BROWNE NP REHAB SERVICES AIDE FOR HOSPITALIST. ORDER RECEIVED TO CHANGE CODE STATUS TO FULL CODE. PT AND DTR HAVE BEEN UPDATED.
--- NOTE | 2021-04-27 03:44 | NUR ---
UPON INITIAL ASSESSMENT LAST EVENING, PT WAS SITTING UP IN CHAIR. SHE C/O BACK PAIN. TYLENOL GIVEN FOR PAIN AND PT WAS TRANSFERED BACK TO BED. PRN OLANZAPINE GIVEN AT BEDTIME FOR ANXIETY AND TO HOPEFULLY REDUCE HALLUCINATIONS DURING THE NIGHT. PT HAS NOT C/O ANY HALLUCINATIONS SO FAR DURING THE SHIFT. PRN COUGH MEDICINE GIVEN FOR C/O DRY COUGH. PT HAS SINCE BEEN SLEEPING WELL. RESPIRATIONS EVEN AND UNLABORED. FALL PRECAUTIONS IN PLACE. PROGRESSING SLOWLY TOWARD POC GOALS. PLANS FOR POSSIBLE D/C TO ACUTE REHAB SOON, PENDING INSURANCE AUTHORIZATION. WILL CONTINUE TO MONITOR FURTHER.
[2021-04-27 04:08] VITALS: BP 133/65
[2021-04-27 07:35] VITALS: BP 148/77
[2021-04-27 09:26] LABS: HEMATOCRIT 32.9 % (37.0-47.0); MCH 30.8 pg (26.0-34.0); MCHC 33.5 g/dL (28.0-37.0); MCV 91.8 fL (80.0-100.0); RBC 3.59 mil/uL (4.20-5.00); RDW 14.3 % (10.5-14.5); WBC 6.2 thou/uL (4.0-11.0)
--- NOTE | 2021-04-27 10:41 | NUR ---
PEER TO PEER WAS COMPLETED THIS DATE BY DR. CARNEY. NOTICE OF DENIAL RECEIVED FROM [facility]. APPEAL CAN BE MADE WITHIN 60 DAYS OF THIS DATE. PATIENT MUST CALL TO LEARN HOW TO NAME SAVINGS COUNSELOR FOR APPEAL. APPEAL REQUEST MUST INCLUDE: PATIENT NAME, ADDRESS, MEMBER NUMBER, REASON FOR APPEAL, WHETER YOU WANT A STANDARD OF FAST APPEAL AND ANY EVIDENCE YOU WANT THE INSURANCE TO REVIEW. APPEAL CAN BE FAXED TO AND PHONE NUMBER IS . PHYSICIAN AND D/C ASSAULT AMPHIBIOUS VEHICLE OFFICER INFORMED OF DENIAL.
[2021-04-27 11:07] VITALS: BP 140/94
--- NOTE | 2021-04-27 13:40 | NUR ---
TOOK OVER PATIENT CARE AT 0700. PATIENT RESTING IN BED; PATIENT VERY DROWSY THIS MORNING BUT ABLE TO AROUSE. ASSISTED PATIENT IN AMBULATING TO CHAIR WITH GAIT BELT AND WALKER. PT SITTING UP FOR HER MEALS. FALL PRECAUTIONS IN PLACE AND CALL LIGHT WITHIN REACH. DAUGHTER VISITED THIS MORNING. PATIENT DENIES ANY ADDITIONAL NEEDS. RESTING COMFORTABLY IN THE CHAIR.
--- NOTE | 2021-04-27 14:25 | NUR ---
Dr Amaral did peer to peer with insurance. Ins denied 5N. updated patient and dtr. Dtr plans to call insurance. She is aware [employer] skilled list in patients room for her to review.
[2021-04-27 15:20] VITALS: BP 119/67
--- NOTE | 2021-04-27 17:22 | NUR ---
CALLED REPORT TO [facility]. PATIENT WILL BE TRANSFERRED THIS EVENING.
[2021-04-27 18:33] VITALS: BP 117/53
--- NOTE | 2021-04-27 19:19 | NUR ---
PATIENT TRANSFERED FROM CCU TO FROM [facility] AT AROUND 1815. PLACED ON MONTIOR, SITTING IN CHAIR. CALL LIGHT IN REACH. DENIES ANY PAIN OR NEEDS. REPORT GIVEN TO NOC NURSE.
--- NOTE | 2021-04-28 03:09 | NUR ---
ASSUMED PT CARE THIS PM. PT IS ALERT AND ORIENTED X4. NO SIGN OF CONFUSION WAS NOTED. PT C/O PAIN WHICH WAS MANAGED BY PRN PAIN MEDS. MEDS WERE GIVEN PER EMAR ORDERS. PT IS INCONTNENT AND IS UPX1 WITH A WALKER TO THE BR. PT IS ON 2L OF OXYGEN VIA NC. FALL PREACUTIONS IN PLACE. WILL CONTINUE TO MONITOR.
[2021-04-28 04:30] VITALS: BP 136/62
[2021-04-28 07:58] VITALS: BP 129/67
--- NOTE | 2021-04-28 15:36 | NUR ---
CM SPOKE WITH PT'S DTR WENDI ARIAS. SHE INDICATED THAT SHE WANTED TO APPEAL THE ACUTE REAHB DENIAL. CM PROVIDED HER THE PHONE NUMBER TO INITIATE A FAST APPEAL. SHE INDICATED SHE WOULD CALL LATER THIS EVENING OR TOMORROW AM. SHE INDICATED THAT [facility] MIGHT BE THEIR SKILLED BACK UP IF NEEDED. SHE WAS AGREEABLE WITH CM REACHING OUT TO THEM TO ENSURE THEY HAVE [employer]IVE [employer] CONTRACT THEY RECENTLY CHANGED OWNERSHIP. CM CALLED AND SPOKE WITH [facility] AND THEY DON'T TAKE [employer]. CM NOTIFIED [facility]. CM FOLLOWING REGARDING DC PLANNING.
--- NOTE | 2021-04-28 18:29 | NUR ---
PT ALERT AND ORIENTED TIMES FOUR WITH PERIODS OF CONFUSION. VSS, PT DENIES PAIN/SOA. PT TOLERATES MEDS, BUT EATS VERY SMALL POTIONS OF MEALS. PT UP WITH ASSSIT. PT DAUGHTER AT BEDSIDE. WILL CONTINUE TO MONITOR.
[2021-04-28 19:12] VITALS: BP 130/64
[2021-04-29 03:41] VITALS: BP 107/55
--- NOTE | 2021-04-29 05:47 | NUR ---
Pt. rested quietly during the night when checked on during frequent rounds. She offers no c/o pain. Incontinent of urine and kenna care given. Bed alarm is on.
[2021-04-29 07:00] VITALS: BP 124/62
--- NOTE | 2021-04-29 10:09 | HC ---
[facility] [place] [address] CONSULTATION Name: TRISTAN DURBIN Room #: 451-P ADM IN M.R.#: [id number] Admission: 04/17/21 Attend Phys: Maday Muro MD Discharge: Date of : 47 Report #: [id number] THIS REPORT FOR: cc: Carleen Felix Shanna R. DO Khosla, Parveen K. MD ~ DATE OF SERVICE: 04/20/2021 DATE OF SERVICE: 04/20/2021 HISTORY OF PRESENT ILLNESS: A 75-year-old female patient who is known to me from the last admission. This patient follows up at [facility] and she says that she sees Dr. Hoyos who diagnosed her with Parkinson disease. She is on Sinemet, but she has developed multiple problems. She has a pretty strong psychiatric history and her medication has been adjusted recently. If I understand from the records. She was discharged to the alf facility where she had an episode of syncope. The best I can tell, there was no documentation of losing the pulse, but the patient was given CPR. Her biggest complaint is significant tenderness in the chest area, which is attributed to CPR. She had workup the last time and she had an MRI of the brain, which appear unremarkable. Symptoms were difficult to evaluate because she was hallucinating and she has a psychiatric history. It becomes difficult to tell how much of her symptoms are psychiatric and how much are organic. She did not want to proceed with MRI of the spine at that time. She appeared to have a more generalized weakness now. I am not sure how much difference it is. She was evaluated by rehab last time in spite of the fact that she has Parkinson disease. She was considered to be high functioning on the basis of a PT evaluation. REVIEW OF SYSTEMS: Positive for the spell, which appeared to be vasovagal spell. According to multiple assessments. She has a history of Parkinson disease, pretty significant psychiatric history in the past. She is receiving antibiotics with sepsis protocol as I understand. PAST MEDICAL HISTORY: Positive for significant psychiatric problem. FAMILY HISTORY: Unremarkable. SOCIAL HISTORY: She does not smoke. PHYSICAL EXAMINATION: She is alert. She is responsive, she opened her eyes poorly, but I think she can move her eyes in all direction. She moved all 4 extremities. She did pretty well with the position sense. Reflexes are somewhat diminished in generalized fashion, but are present in the lower extremities. There is no cerebellar sign. I did not make the patient talk. Cardiorespiratory indicates pretty significant [place] [id number] CONSULTATION Name: TRISTAN DURBIN Room #: [address] [place] [address] IN M.R.#: [id number] Admission: 04/17/21 Attend Phys: Maday Muro MD Discharge: Date of : 47 Report #: [id number] She did a CT scan of the head which was unchanged. Carotid Doppler is unremarkable. LABORATORY DATA: Lab indicate white count of 15.3, which has returned back to normal. Her platelet is low at 107. She had a head PTT at one time of 87.5. She does appear to be weaker than she was last time in generalized fashion, especially in the legs, but it is difficult to tell. IMPRESSION: 1. As far as the spell is concerned that is most likely non-neurological. There is no etiology for that. 2. She has generalized weakness, which is difficult to assess. We have talked about doing an MRI and the last time she did not want that. I talked to her again. She said she will go ahead and do that. I will do the MRI of the thoracic spine first and see what it shows and then we will see if any further things need to be done. More than 50 minutes of time was spent taking care of this patient today and majority was spent counseling and coordinating and reviewing her pretty extensive imaging studies. Thank you very much for this referral. <ELECTRONICALLY SIGNED> By: Erik Gatica MD 04/29/21 1009 [id number] 0119 Erik Gatica MD /nt
[2021-04-29 12:00] VITALS: BP 111/56
--- NOTE | 2021-04-29 13:11 | NUR ---
HARVEST WORKER FRUIT FOR PATIENT STATED PATIENT'S FAMILY WAS REQUESTING ASSISTANCE FOR EXPEDITED APPEAL FOR ACUTE REHAB STAY. CHILD PSYCHOLOGIST CONTACTED PATIENT'S INSURANCE AND REQUESTED EXPEDITED APPEAL FOR THE FAMILY. CLINICAL INFORMATION FAXED TO NUMBER PROVIDED BY INSURANCE. WILL AWAIT DECISION AND PROVIDE FURTHER INFORMATION IF REQUESTED BY INSURANCE.
--- NOTE | 2021-04-29 14:24 | NUR ---
CM SPOKE WITH PT AND DTR AT BEDSIDE THIS AM. WENDI INDICATED SHE HAD ATTEMTPED TO INITIATE APPEAL OVER THE PHONE BUT THAT THEY HAD TOLD HER SHE HAD TO DO IT BY COMPUTER. SHE TRIED TO DO IT BY COMPUTER BUT WAS TOLD IT COULD ONLY BE INITIATED BY HOSPITAL STAFF OR PT. CIVIL CELEBRANT TO INITIATE APPEAL. IT HAD BEEN DONE AND CLINICAL HAS BEEN SENT. NOW AWAITING DETERMINATION. DTR INTERESTED IN [facility] IF 5N AGAIN DENIED. CM FOLLOWING REGARDING DC PLANNING.
[2021-04-29 17:00] VITALS: BP 104/55
--- NOTE | 2021-04-29 17:36 | NUR ---
ASSESSMENT CHARTED. PT ALERT AND ORIENTED WITH FORGETFULNESS. PRN PAIN MED GIVEN WITH PARTIAL RELIEF. PARTICIPATED IN PT/OT. NO CONCERNS AT THIS TIME. PT PROGRESSING WELL TOWARDS DISCHARGE GOAL.
[2021-04-29 19:54] VITALS: BP 130/66
[2021-04-30 00:18] VITALS: BP 138/65
[2021-04-30 04:05] VITALS: BP 104/56
--- NOTE | 2021-04-30 05:14 | NUR ---
ASSUMED CARE OF PT AT 1900. THROUGHOUT THE NIGHT PT RESTED IN ROOM WITH NO COMPLAINTS, VSS. REMAINS AOX3 THROUGHOUT THE NIGHT, AMBULATING TO THE BATHROOM SBA WITH A WALKER, AND PAIN CONTROLLED WITH TYLEONOL. PUT ON 2L WHILE SLEEPING FOR COMFORT. CONTINENTX2 AND COUGH CONTROLLED WITH GUAFINISEN. RUNS SR ON THE MONITOR.
[2021-04-30 07:28] VITALS: BP 142/75
[2021-04-30 12:25] VITALS: BP 126/76
--- NOTE | 2021-04-30 14:39 | NUR ---
5N [place] INDICATED THAT SHE HAD SPOKEN TO [facility] THIS AM AND FAXED SOME ADDITIONAL INFO THEY HAD REQUESTED. THEY INFORMED HER THAT THEY SHOULD HAVE A DETERMINATION TOMORROW. CM FOLLOWING REGARDING DC PLANNING.
[2021-04-30 16:40] VITALS: BP 141/70
--- NOTE | 2021-04-30 17:49 | NUR ---
PT UP TO CHAIR TODAY AND WORKED WITH PT/OT. PT AWAITING AUTHORIZATION FOR REHAB. WILL CONTINUE TO ASSESS.
[2021-04-30 19:27] VITALS: BP 116/69
[2021-05-01 05:21] VITALS: BP 140/68
--- NOTE | 2021-05-01 05:39 | NUR ---
ASSUMED PT CARE THIS PM. PT IS ALERT AND ORIENTED X4. PT C/O PAIN TO THE L THORACIC SIDE WHICH IS MANAGED BY PRN MEDS. VS ARE WITHIN NORMAL RANGE. MEDS WERE GIVEN PER EMAR ORDERS. PT DID NOT VERBALIZE ANY CONCERNS AND NO VISIBLE SIGN OF DISTRESS WAS NOTED. PT IS ON RA. FALL PRECAUTIONS IN PLACE. WILL CONTINUE TO MONITOR.
[2021-05-01 06:10] LABS: ABSOLUTE NEUTROPHILS 3.1 thou/uL (1.4-8.2); BASOPHILS 0.5 % (0.0-2.0); HEMATOCRIT 30.8 % (37.0-47.0); HEMOGLOBIN 10.7 gm/dL (12.0-15.0); LYMPHOCYTES 29.2 % (24.0-44.0); MCH 31.6 pg (26.0-34.0); MCHC 34.8 g/dL (28.0-37.0); MCV 90.8 fL (80.0-100.0); PLATELET COUNT 184 thou/uL (150-400); POLYS 54.3 % (36.0-66.0); RDW 13.7 % (10.5-14.5); WBC 5.6 thou/uL (4.0-11.0)
[2021-05-01 06:50] LABS: CALCIUM 8.1 mg/dL (8.5-10.1); CREATININE 0.6 mg/dL (0.6-1.0); PHOSPHORUS 4.2 mg/dL (2.5-4.9); POTASSIUM 3.5 mmol/L (3.5-5.1)
[2021-05-01 08:10] VITALS: BP 131/68
[2021-05-01 11:57] VITALS: BP 128/48
--- NOTE | 2021-05-01 12:15 | NUR ---
KIN[facility]A FAXED DENIAL FOR ACUTE REHAB APPEAL THAT WAS REQUESTED ON 04/30/21. "KINDRA DETERMINED THAT WE WOULD MAINTAIN OUR ORIGINAL DECISION TO NOT APPROVE INPATIENT REHAB FACILITY SERVICES." ADDITIONAL OPTIONS WERE LISTED ON FAX REGARDING [facility] SERVICES REVIEW OF CASE. FAXED INFORMATION GIVEN TO GRANULATING MACHINE OPERATOR AND A COPY MADE FOR DC INCREMENT MANAGER TO GIVE TO FAMILY/PATIENT IF DESIRED.
--- NOTE | 2021-05-01 14:17 | NUR ---
[facility] DENIED APPEAL FOR 5N. CM NOTIFIED PT AND DTR WENDI. CM INDICATED THAT CM COULD FAX REFERRAL TO [facility] THAT WAS A FACILITY THEY HAD INDICATED A POSSIBILITY EARLIER AND DTR INDICATED THAT SHE HAD TO SPEAK WITH THEM AND VISIT FIRST. CM FAXED REFERRAL TO [facility]. CM FOLLOWING REGARDING DC PLANNING. PT WILL BE HERE OVER THE WEEKEND.
--- NOTE | 2021-05-01 14:27 | NUR ---
Nutrition: at follow up, recent intake 60%. Wt up from admit. No recent albumin. Meds reviewed. Pt was not available to interview this afternoon. Insurance denied In-pt rehab; CM working on placement. No change in nutrition status, continues at low risk. Rec offer supplments PRN for meal intake 50% or less.
[2021-05-01 17:12] VITALS: BP 120/59
--- NOTE | 2021-05-01 17:35 | NUR ---
Assumed pt care at 7am.Pt in bed resting early this shift.Assessment completed vss. Meds given as ordered and well tolerated. Dr Márquez here,order noted. Pt dtr here to visit,updates given. Pt c/o left ribs pain. Lidocaine patch and pain cream applied.Pt took shower later this afternoon and complete bed change done by sales recruiter.Fall precautions in place. Will continue to monitor.
[2021-05-02 04:52] VITALS: BP 117/67
--- NOTE | 2021-05-02 04:58 | NUR ---
ASSUMED CARE AT 1900, PT REPORTS NO PAIN OR DISCOMFORT, ASSISTED WITH TOILETING BEFFORE BED, LAYING IN BED COMFOTABLY, TOLARATED HS MEDS WELL, NO ADVERSE REACTION NOTED, CALL LIGHT WITHIN REACH, WILL CONTINUE TO MONITOR.
[2021-05-02 07:15] VITALS: BP 132/58
[2021-05-02 16:30] VITALS: BP 128/64
--- NOTE | 2021-05-02 18:08 | NUR ---
Pt A & O x4. Pt VS stable. Pt received medications as ordered and also received PRN medications. Pt is on room air. pt has cough noted with no sputum noted. pt is x 1 assist with ADLs and cares. pt uses FWW for mobility. Pt is able to make needs known.
[2021-05-02 19:48] VITALS: BP 107/66
[2021-05-03] VITALS (7 sets, daily range): BP systolic 107–150; BP diastolic 58–82
--- NOTE | 2021-05-03 05:00 | NUR ---
ASSUMED CARES AT 1900, PT REPORTS NO PAIN OR DISCOMFORT, TOILETED BEFORE BED AND NEEDED, COMPLIANT TO TREATMENT, SLEPT WELL THROUGH THE NIGHT, DIMINISHED LUNG SOUNDS, TX PLAN IN PLACE, NO COUGH NOTED WILL CONTINUE TO MONITOR.
--- NOTE | 2021-05-03 05:01 | HC ---
[facility] [place] [address] CONSULTATION Name: TRISTAN DURBIN Room #: 451- ADM IN M.R.#: [id number] Admission: 04/17/21 Attend Phys: Maday Muro MD Discharge: Date of : 49 Report #: [id number] THIS REPORT FOR: cc: Carleen Felix Shanna R. DO Barry, Joseph W. MD ~ DATE OF SERVICE: 05/02/2021 INFECTIOUS DISEASE CONSULTATION ATTENDING PHYSICIAN: Dr. Cartwright. REASON FOR EVALUATION: Persistent cough, suspected pneumonitis. HISTORY OF PRESENT SUBJECTIVE: Chart reviewed. The patient examined. This is a 75-year-old woman who was initially hospitalized back on 04/17 with a syncopal episode and undergoing evaluation including Neurology and Cardiology, also seen Rehabilitation Service. She is noted to have a persistent cough. Although she has been maintained on room air, she states that it is quite uncomfortable. She is unable to expectorate. Did undergo evaluation with CT of the chest which showed moderate left lower lobe atelectasis versus pneumonitis with a moderate pleural effusion, felt not to be complicated and lesser changes on the right as well. It is not clear that she has had any fevers. She notes her appetite has been somewhat diminished. ALLERGIES: None known. MEDICATIONS: Currently include diclofenac, quetiapine, guaifenesin, enoxaparin, lidocaine patch, cholecalciferol, pantoprazole, atorvastatin, Sinemet, p.r.n. ondansetron, metoprolol. PAST MEDICAL HISTORY: Known history of Parkinson's, IBS, atrial fibrillation, has cardiomyopathy with congestive heart failure. SOCIAL HISTORY: History of ethanol excess. FAMILY HISTORY: Noncontributory. REVIEW OF SYSTEMS: Otherwise, unremarkable. PHYSICAL EXAMINATION: GENERAL: She appears chronically ill. She is pleasant, alert. She is likely mildly encephalopathic and undernourished. VITAL SIGNS: Temperature 97.6, pulse 80, respirations 16, blood pressure 132/58. SKIN: Warm, dry, no rashes. [facility] [address] [place] [address] CONSULTATION Name: TRISTAN DURBIN Omero Room #: 451-P [facility] IN M.R.#: [id number] Admission: 04/17/21 Attend Phys: Maday Muro MD Discharge: Date of : 49 Report #: [id number] HEENT: Normocephalic. Extraocular muscles intact. NECK: Supple. LUNGS: Few scattered coarse breath sounds, primarily crackles at the bases. HEART: Irregular. I do not appreciate a murmur. ABDOMEN: Mildly distended, slightly firm. No peritoneal signs. GENITOURINARY AND RECTAL: Deferred. LABORATORY DATA: Electrolytes: Sodium 145, potassium 3.5, chloride 108, bicarbonate is 26, anion gap of 11, BUN and creatinine 16 and 0.9, glucose of 93. Estimated GFR of 98. CBC: White count of 5.6 on the 05/01, H and H 10.7 and 30.8, platelets of 184. Most recent chest x-ray dated back to 04/17 shows cardiomegaly, question of some infiltrates at that point. CT of the chest as noted above. ASSESSMENT AND PLAN: Chronic cough. The patient perhaps has some underlying lung disease. She has known cardiac disease. It is probably reasonable to initiate empiric therapy. We will try to obtain a sputum sample. At this point, she is not overtly toxic, not requiring pressors. Would consider atypical as well. Repeat chest x-ray to assess comparison from 2-3 weeks prior. <ELECTRONICALLY SIGNED> By: Philipp Akins MD 05/03/21 0501 0814 [id number] Philipp Akins MD /nt
--- NOTE | 2021-05-03 17:05 | NUR ---
PATIENT IS A/Ox3 ABLE TO MAKE NEEDS KNOWN. VSS AFEBRILE. SR ON MONITOR. CONTINUES ON ABT;NO ADVERSE SIDE EFFECTS NOTED. PATIENT HAS A DRY COUGH, COUGH MEDICATION IS SCHEDULED AT THIS TIME. USES LIDODERM AND MUSCLE RUB SCHEDULED FOR PAIN WHICH IS EFFECTIVE. PATIENT IS AWAITING PLACEMENT INTO A SNF FOR DISCHARGE.
--- NOTE | 2021-05-04 03:08 | NUR ---
ASSUMED PT CARE THIS PM. PT IS ALERT AND ORIENTED X4. NO SIGN OF CONFUSION WAS NOTICED. PT IS PLEASANT AND COOPERATIVE. PT IS ABLE TO VERBALIZE NEEDS. MEDS WERE GIVEN PER EMAR ORDERS. PT IS ON RA. PT IS UPX1 WITH A WALKER. NO VISIBLE SIGN OF DISTRESS WAS NOTED. FALL PRECAUTIONS IN PLACE. WILL CONTINUE TO MONITOR.
[2021-05-04 04:21] VITALS: BP 125/56
[2021-05-04 06:18] VITALS: BP 129/69
[2021-05-04 07:58] VITALS: BP 155/79
--- NOTE | 2021-05-04 12:31 | NUR ---
CM HAD REACHED OUT TO DEANNNA ADMISSIONS AT AND SHE FINK'T RESPONDED. CM CALLED AND SPOKE WITH HER AND SHE INDICATED THAT THEY DECLINED ADMISSION PT HAD HALLUCINATIONS. CM INDICATED THAT PT HASN'T HAD ANY RECENT HALLUCINATIONS AND SENT UPDATED CLINICAL AND ASKED THAT THEY RE REVIEW REFERRAL. CM FOLLOWING REGARDING DC PLANNING.
--- NOTE | 2021-05-04 15:07 | NUR ---
ASSUMED PT CARE THIS AM. PT A&OX3-4, ABLE TO MAKE NEEDS KNOWN. PATIENT AMBULATORY WITH ASSIST. PATIENT HAS STRESS INCONTINENCE. PATIENT REMAINS ON ROOM AIR. IV REMAINS PATENT, SLAINE LOCKED. MEDICATIONS TAKEN WITHOUT ISSUE. PATIENT REMAINS ON TELEMETRY. FALL PRECAUTIONS ARE IN PLACE, CALL LIGHT WITHIN REACH.
[2021-05-04 19:37] VITALS: BP 120/75
[2021-05-05 05:17] VITALS: BP 133/83
--- NOTE | 2021-05-05 05:25 | NUR ---
Assumed pt care at 1900. A/OX4 with forgetfulness noted but able to make needs known. Up with AX1,RW/GB,VSS. Denied pain on assessment. Has stress incontinence,wears briefs. SR on telemetry. Fall precautions in place,will contonue to monitor pt.
[2021-05-05 08:45] VITALS: BP 102/68
[2021-05-05 10:22] LABS: CALCIUM 8.6 mg/dL (8.5-10.1); POTASSIUM 3.7 mmol/L (3.5-5.1)
[2021-05-05 11:00] VITALS: BP 102/61
--- NOTE | 2021-05-05 12:56 | NUR ---
ASSUMED PT CARE THIS AM. PT A&OX4, ABLE TO MAKE NEEDS KNOWN. PATIENT REPORTS NO PAIN. PATIENT HAS STRESS INCONTINENCE. AMBULATES WITH ASSIST TO THE BEDSIDE COMMODE. PATIENT ON ROOM AIR. IV REMAINS PATENT. FALL PRECAUTIONS ARE IN PLACE, CALL LIGHT WITHIN REACH.
--- NOTE | 2021-05-05 13:28 | NUR ---
CM REACHED OUT TO [facility] AT AFTER CM FAXED UPDATES AND NOTES INDICATING NO HALLUCINATIONS YETERDAY AND SHE INDICATED THAT THEY ARE STILL DECLINING ADMISSION. CM NOTIFIED PT AND DTR WENDI AT BEDSIDE THIS AM. PT'S DTR INDICATED SHE WOULD REVIEW LIST AND SEE WHERE ELSE THEY WANTED REFERRALS SENT. CM FOLLOWING.
[2021-05-05 16:00] VITALS: BP 118/62
[2021-05-05 19:43] VITALS: BP 131/68
[2021-05-06 00:47] VITALS: BP 122/60
--- NOTE | 2021-05-06 03:49 | NUR ---
Assumed pt care at 1900. A/OX4,VSS. Denies pain on assessment. Up with AX1,RW/GB to BR. Stress incontinence noted,wears pullups. Does have a NPC reports it's getting loose slowly. Remains on telemetry ST/SR. Fall precautions in place,resting quietly w/o distress noted,will continue to monitor pt.
[2021-05-06 04:37] VITALS: BP 92/62
[2021-05-06 07:26] VITALS: BP 138/69
--- NOTE | 2021-05-06 11:18 | NUR ---
CM FAXED REFERRAL TO [facility]. CM FOLLOWING REGARDING DC PLANNING.
[2021-05-06 11:47] VITALS: BP 101/55
[2021-05-06 13:38] LABS: CALCIUM 8.8 mg/dL (8.5-10.1); CREATININE 0.8 mg/dL (0.6-1.0); POTASSIUM 3.5 mmol/L (3.5-5.1)
--- NOTE | 2021-05-06 14:21 | NUR ---
ASSUMED PT CARE THIS AM. PT A&OX4, ABLE TO MAKE NEEDS KNOWN. PATIENT REPORTING NO PAIN, NUMBNESS, OR TINGLING. PATIENT HAS STRESS INCONTINENCE. PATIENT HAS A NONPRODUCTIVE COUGH. ON ROOM AIR. MEDICATION TAKEN WITHOUT ISSUE. FALL PRECAUTIONS ARE IN PLACE, CALL LIGHT WITHIN REACH.
[2021-05-06] MEDS ORDERED: LIDOPATCH1 EACH TRANSDERM (14:25)
[2021-05-06] MEDS ORDERED: ARTHRITIS PAIN100 GM TOP (14:25)
[2021-05-06] MEDS ORDERED: PROTONIX 20 MG20 M1 PO (14:25)
[2021-05-06] MEDS ORDERED: GUAIFENESIN DM S5 ML PO (14:25)
[2021-05-06] MEDS ORDERED: METOPROLOL SUCC25 M1 PO (14:25)
[2021-05-06] MEDS ORDERED: MIRALAX17 GM PO (14:25)
[2021-05-06] MEDS ORDERED: LEVOFLOXACIN500 MG PO (14:25)
[2021-05-06] MEDS ORDERED: SEROQUEL 25 MG25 M1 PO ×2 (14:25)
[2021-05-06] MEDS ORDERED: LIPITOR40 MG PO (14:25)
[2021-05-06 16:13] VITALS: BP 121/58
--- NOTE | 2021-05-08 10:44 | HC ---
[facility] [place] [address] CONSULTATION Name: TRISTAN DURBIN Omero Room #: 451-P [facility] M.R.#: [id number] Admission: 04/17/21 Attend Phys: Maday Muro MD Discharge: 05/06/21 Date of : 49 Report #: [id number] THIS REPORT FOR: cc: Carleen Felix Shanna R. DO Smithson, David G. MD ~ DATE OF SERVICE: 04/20/2021 HISTORY OF PRESENT ILLNESS: The patient is a 75-year-old white female with a history of Parkinson's disease, irritable bowel syndrome, and generalized weakness with debilitation, who was discharged to a residential facility on 04/16/2021 and was readmitted the following day on 04/17/2021 after having syncopal episode in the bathroom. She was given CPR. CT of the head was negative. She was noted to have an elevated troponin and non-ST elevation AK. She was admitted to the CCU. The syncopal episode was thought to likely be vasovagal. She was noted to have acute metabolic encephalopathy on baseline dementia with psychosis. Cardiology was involved with a non-ST elevation AK, and a stress test was canceled secondary to mental status changes. She was having some hallucinations and some agitation, which appears improved, and she had some restraints before that had been removed currently. We are seeing her in rehabilitation medicine consultation. PAST MEDICAL HISTORY: Includes the above noted Parkinson's disease. She has a history of irritable bowel syndrome. ALLERGIES: No known drug allergies. MEDICATIONS: Please see the full medication listing. SOCIAL HISTORY: She had been living in an apartment alone, was utilizing a 4-wheeled walker, modified independent. She does have elevator access to her apartment. She does have involved family with a daughter who is involved. REVIEW OF SYSTEMS: Did not offer any current complaints of chest pain, shortness of breath, or abdominal discomfort. PHYSICAL EXAMINATION: GENERAL: She is a 75-year-old female, sleepy, but does easily arouse. She will follow basic 1-step commands. VITAL SIGNS: Temperature 36.7, pulse 97, respirations 20, and blood pressure 141/71. HEENT: Facies appeared symmetric. Some evidence of masked facies. NEUROLOGIC: She has some cogwheeling with gentle passive range of motion of both upper extremities at the elbows and wrists. Some mild rigidity is noted. Strength is probably a grade 3+ to 4-/5. EXTREMITIES: Lower extremities, no calf swelling. Some mild rigidity with [facility] [address] [place] [address] CONSULTATION Name: TRISTAN DURBIN Room #: 451-P [facility]#: [id number] Admission: 04/17/21 Attend Phys: Maday Muro MD Discharge: 05/06/21 Date of : 49 Report #: [id number] strength probably a grade 4- to 3+/5. She has some bruising around her sternal area, and she is set at the edge of the bed for 5 minutes and complains of discomfort and pain and has not ambulated to this point. ASSESSMENT: A 75-year-old white female, readmitted to [facility] with the following problem list: 1. Fall with syncopal episode, most likely vasovagal. 2. Acute metabolic encephalopathy, superimposed on baseline dementia with psychosis. 3. Chest wall contusion from CPR. 4. Non-ST elevation myocardial infarction with stress test canceled due to acute mental status changes, noted to be doing well from a cardiac perspective. 5. Electrolyte abnormalities. 6. Leukocytosis, resolved. 7. Parkinson's disease with hallucinations. 8. Vitamin D deficiency. PLAN: Therapies are continuing to work with her to gradually advance her function. She had premorbidly been living in an apartment alone. Would agree with returning to a skilled level when she is further medically stabilized. She apparently is interested and her daughter along with her in going to a different residential facility, and case management is aware of this. I do not see that she would meet insurance criteria for an acute inpatient rehabilitation stay and would agree with residential facility transfer when can be arranged. Thank you for asking us to assist in this patient's care. <ELECTRONICALLY SIGNED> By: Ricky Amaral MD 05/08/21 [id number] Ricky Amaral MD /nt
== END 2021-05-06 17:42 | DRG 871 ==
LOC: ER 06:19 → ICU 08:35 → 2N 08:35 → EROBS 08:35 → ICU 10:23 → 2N 04-20 11:25 → 4W 04-27 17:39
PROVIDERS: Emergency Medicine; Hospitalist; Internal Medicine; Nurse Practitioner; Nurse Practitioner Adult Health; ADMIT Hospitalist; ATTEND Hospitalist
PROC: 5A12012 Performance of Cardiac Output, Single, Manual (ICD-10-PCS; principal; 2021-04-17)
DX: A41.9 Sepsis, unspecified organism (principal); I21.4 Non-ST elevation (NSTEMI) myocardial infarction; R57.1 Hypovolemic shock; G92.8 Other toxic encephalopathy; J18.9 Pneumonia, unspecified organism; N17.9 Acute kidney failure, unspecified; E87.0 Hyperosmolality and hypernatremia; I42.9 Cardiomyopathy, unspecified; F10.139 Alcohol abuse with withdrawal, unspecified; D61.818 Other pancytopenia; I13.0 Hypertensive heart and chronic kidney disease with heart failure and stage 1 through stage 4 chronic kidney disease, or unspecified chronic kidney disease; M25.512 Pain in left shoulder; I50.9 Heart failure, unspecified; E87.6 Hypokalemia; N18.9 Chronic kidney disease, unspecified; R65.20 Severe sepsis without septic shock; G20 Parkinson's disease; E53.8 Deficiency of other specified B group vitamins; R53.81 Other malaise; E88.09 Other disorders of plasma-protein metabolism, not elsewhere classified; K59.09 Other constipation; I48.91 Unspecified atrial fibrillation; F10.129 Alcohol abuse with intoxication, unspecified; Z20.822 Contact with and (suspected) exposure to COVID-19; S20.219A Contusion of unspecified front wall of thorax, initial encounter; K58.9 Irritable bowel syndrome, unspecified; E83.42 Hypomagnesemia; R26.89 Other abnormalities of gait and mobility; E86.0 Dehydration; R41.0 Disorientation, unspecified; W18.39XA Other fall on same level, initial encounter; Y93.89 Activity, other specified; Y92.89 Other specified places as the place of occurrence of the external cause; Y99.8 Other external cause status; Z79.82 Long term (current) use of aspirin; Z79.899 Other long term (current) drug therapy; Z82.49 Family history of ischemic heart disease and other diseases of the circulatory system; Z28.21 Immunization not carried out because of patient refusal
CPT/HCPCS: 10045; 10081; 10203

== ENCOUNTER → 2021-06-01 | Outpatient (CLI) | payer OTHER ==
[~2021-06-01] MED LIST changes: +ARTHRITIS PAIN100 GM TOP; +GUAIFENESIN DM S5 ML PO; +HALDOL 0.5 MG0.5 MG PO; +LEVOFLOXACIN500 MG PO; +LIDOPATCH1 EACH TRANSDERM; +LIPITOR40 MG PO; +METOPROLOL SUCC25 M1 PO; +MIRALAX17 GM PO; +PROTONIX 20 MG20 M1 PO; +SEROQUEL 25 MG25 M1 PO
== END ==
LOC: SJCVC 09:56
PROVIDERS: ATTEND Internal Medicine
DX: E78.00 Pure hypercholesterolemia, unspecified (principal); I10 Essential (primary) hypertension; G20 Parkinson's disease; Z79.82 Long term (current) use of aspirin; Z79.899 Other long term (current) drug therapy; Z88.1 Allergy status to other antibiotic agents